=== PATIENT | female | born 1990 | race Caucasian/White ===

== ENCOUNTER 2020-12-18 08:27 | Emergency (ER) | payer BC, SELFPAY ==
[2020-12-18 08:50] VITALS: BP 118/84; PULSE 77; RESP 18; TEMP 36.6; O2SAT 98; BMI 29.7
[2020-12-18] MEDS: Cocoa Butter/Zinc Oxide SUPP.RECT 1 SUPP PR (10:06)
[2020-12-18] MEDS: Lidocaine HCl 1 % MPF 5 ML VIAL SUBCUT (10:10)
[2020-12-18] MEDS: Lidocaine 4 % Cream KIT 1 APPL TOPICAL (10:10)
--- NOTE | 2020-12-18 10:24 | ED_ITS ---
HPI - GI Bleed General Chief complaint: General Medical Stated complaint: Hemmorhoids Time Seen by Provider: 12/18/20 09:14 Source: patient Mode of arrival: ambulatory Limitations: no limitations History of Present Illness MD complaint: other (Hemorrhoids) Onset (ago): day(s) (Few days) Pain Consistency: constant Severity: severe Relieving factors: none Exacerbating factors: none Context: hemorrhoids Associated symptoms: other (Bleeding from her hemorrhoid) Treatments Prior to Arrival: topical ointment (Preparation H with no significant relief) Related Data Home Medications Medication Instructions Recorded Confirmed atomoxetine 40 mg capsule 1 cap PO DAILY 12/18/20 dextroamphetamine-amphetamine 10 1 tab PO DAILY 12/18/20 mg tablet erenumab-aooe 140 mg/mL mg SUBCUT QMONTH 12/18/20 subcutaneous auto-injector (Aimovig Autoinjector) escitalopram oxalate 10 mg tablet 1 tab PO DAILY 12/18/20 levothyroxine 25 mcg tablet 1 tab PO DAILY 12/18/20 topiramate 100 mg tablet 1 tab PO BEDTIME 12/18/20 Previous Rx's Medication Instructions Recorded acetaminophen 500 mg tablet 1,000 mg PO QID PRN #14 tab 12/18/20 (Tylenol Extra Strength) ibuprofen 800 mg tablet 800 mg PO Q8H PRN #14 tab 12/18/20 pramoxine 1 % topical foam 1 appl NV BID #15 g 12/18/20 (Proctofoam) tramadol 50 mg tablet 50 mg PO Q8H PRN #14 tab 12/18/20 Allergies Allergy/AdvReac Type Severity Reaction Status Date / Time [id number] Antimigraine Allergy Palpitation Verified 12/18/20 08:52 Agents s Review of Systems Review of Systems: Constitutional : No Weight loss, No Fever, No Chills, No Night Sweats, No Fatigue, NoMalaise ENT/Mouth: No ear pain, No sore throat, No Difficulty swallowing Cardiovascular : No Chest Pain, No SOB, No Dyspnea on Exertion, No Orthopnea, NoEdema, No Palpitations Respiratory : No Cough, No Sputum, No Wheezing, No Dyspnea Gastrointestinal : No Nausea, No Vomiting, No abdominal pain, No Diarrhea, No blood streaked emesis, No coffee-ground emesis, No gross hematemesis, No blood streak stool, No gross hematochezia, No Melena, positive hemorrhoids, Genitourinary : No irregular bleeding, No Dysuria, No Urinary Frequency, No Hematuria,No Urinary Incontinence, No Urgency, No Flank Pain Musculoskeletal : No joint pain, No Myalgias, No Joint Swelling Skin : No Skin Lesions, No rash Neuro : No Weakness, No Numbness, No Paresthesias, No Loss of Consciousness, NoDizziness, No Headache Psych : No Social Issues, Heme/Lymph: No Bruising, No Bleeding,No Lymphadenopathy Endocrine : No Polyuria, No Polydipsia, No Temperature Intolerance Yes all other systems are reviewed and are negative [facility] Past Medical History Attestation statement: The following information was validated with the patient. Medical History Migraines Social History Social History Advance Directives: No Patient : No Physical Exam Vital Signs: Vital Signs: Last Vital Signs Temp 97.9 F 12/18/20 08:50 Pulse 77 12/18/20 08:50 Resp 18 12/18/20 08:50 BP 118/84 12/18/20 08:50 Pulse Ox 98 12/18/20 08:50 Body Mass Index 29.7 vital signs have been reviewed as normal and appeared to be correct. Blood pressure normal. Heart rate normal. Respiration rate normal. Temperature normal. Oxygen saturation normal. Appearance: Alert. Oriented X3. No acute distress. Head: Normal external exam. Normocephalic. Atraumatic. Eyes: PERRLA. EOMI. Conjunctiva and sclera normal. Eyelids normal. ENT: Pharynx normal. Uvula midline. Moist mucous membranes. Neck: Normal inspection. Neck supple. FROM. No meningeal signs. CVS: Normal heart rate and rhythm. Heart sound normal. Respiratory: No respiratory distress. Painless inspiration. Breath sounds normal. Abdomen: Soft and nontender. Bowel sounds normal in all 4 quadrants. No distention noted. No organomegaly noted. No visible injury noted. Rectal: Patient noted to have moderate size external thrombosed hemorrhoid with superficial opening no active bleeding noted at this time no purulent drainage noted. Back: Full range of motion noted. Skin: Skin warm and dry. Normal skin color. Normal skin turgor. No rashes/lesions/lacerations noted. Extremities: No lower extremity edema. Extremities exhibit normal range of motion. Extremities nontender. Neuro: Oriented X 3. No motor deficit. No sensory deficit. Reflexes normal. Normal steady gait. No focal neuro deficits noted. Course Course Course Narrative: 30-year-old female presenting to the ED with rectal bleeding from her hemorrhoids for the past few days worse today she is now status post hemorrhoidectomy. Patient tolerated procedure well. Will DC home with symptomatic treatment instructions return if any new or worsening symptoms to follow up with PCP/general surgeon. Patient understands agrees with this plan. MDM - GI Bleed Medical Records Attestation: I reviewed the patient's medical records. Procedures Abscess I/D Site: other (Hemorrhoid rectal area) Side (if applicable): left Local Anesthetic: lidocaine 1% Amount of anesthesia used (mL): 3 Technique: incised with blade Amount of fluid expressed (mL): 3 Sent for culture/gram staining?: No Irrigation: Yes Packing used?: none Complications: other (No complications and elliptical incision was utilized and patient tolerated procedure well) Discharge Plan Discharge Clinical Impression: Hemorrhoids, S/P hemorrhoidectomy Patient Disposition: Home, Self-Care Instructions: Hemorrhoids (ED), Sitz Bath (DC), Thrombosed Hemorrhoid (ED), Hemorrhoidectomy (DC) Prescriptions: New ibuprofen 800 mg tablet 800 mg PO Q8H PRN (Reason: pain) Qty: 14 RF: 0 tramadol 50 mg tablet 50 mg PO Q8H PRN (Reason: pain) Qty: 14 RF: 0 acetaminophen [Tylenol Extra Strength] 500 mg tablet 1,000 mg PO QID PRN (Reason: fever or pain) Qty: 14 RF: 0 pramoxine [Proctofoam] 1 % foam 1 appl NV BID Qty: 15 RF: 0 No Action dextroamphetamine-amphetamine 10 mg tablet 1 tab PO DAILY RF: 0 levothyroxine 25 mcg tablet 1 tab PO DAILY RF: 0 topiramate 100 mg tablet 1 tab PO BEDTIME RF: 0 escitalopram oxalate 10 mg tablet 1 tab PO DAILY RF: 0 atomoxetine 40 mg capsule 1 cap PO DAILY RF: 0 Aimovig Autoinjector 140 mg/mL auto-injector subcut QMONTH RF: 0 Referrals: Robin Hyde MD [Physician] - 2 days Yolanda Winn MD [Primary Care Provider] - 2 days Stand Alone Forms: Work/School Release Interventions: ED Discharge Assessment Last Done: 12/18/20 11:05 Discharge Date/Time: 12/18/20 11:06 Print Language: Luxembourger
[2020-12-18] MEDS: Hydrocortisone 2.5 % Rectal Cr 30 GM TUBE 1 APPL PR (10:55)
== END 2020-12-18 11:06 | disposition home or self-care (01) ==
PROVIDERS: Emergency Provider Emergency Medicine; PCP Internal Medicine
DX: K64.5 Perianal venous thrombosis (principal)
CPT/HCPCS: 46083; 99283; 99284

== ENCOUNTER 2023-02-24 08:36 | Outpatient (AMB) | payer BC, SELFPAY ==
--- NOTE | 2023-02-24 09:40 | AM.OFFWIN_ITS ---
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) Intake Note: pt is here today for congestion started 3 weeks ago Patient Tobacco Use Status: Never used Tobacco Allergies [id number] Antimigraine Agents Allergy (Verified 02/24/23 09:41) Palpitations Medication List - Last Reconciled 02/24/23 by Pushpa Gallagher NP cyclobenzaprine 10 mg PO BEDTIME dextroamphetamine-amphetamine 15 mg ER 1 cap PO QAM doxycycline monohydrate 100 mg PO BID indomethacin 25 mg PO TID PRN levocetirizine 5 mg PO QPM levothyroxine 50 mcg PO DAILY rimegepant (Nurtec ODT) 75 mg PO DAILY Do you need a note to return to daycare/school/sports/work: No HPI HPI Comments History of Present Illness Details 33 y/o female patient with c/o congestio n, cough and malaise x 3 weeks. PFSH Medical History Migraines Social History Patient Tobacco Use Status: Never used Tobacco Review of Systems Const All systems reviewed & are unremarkable except as noted in HPI and below Physical Exam Vital Signs: Last Vital Signs Temp 98.6 F 02/24/23 09:47 Pulse 89 02/24/23 09:47 BP 120/90 H 02/24/23 09:47 Pulse Ox 99 02/24/23 09:47 Oxygen Delivery Method Room Air 02/24/23 09:47 BMI result Body Mass Index 29.0 Const General: comfortable HEENT Head: Yes normocephalic Ears: external ears normal and TM's normal bilaterally General nose exam: Normal nasal mucous membranes and turbinates present Face and sinus: Yes sinuses nontender Mouth: moist mucous membranes Throat: Yes tonsils normal, Yes uvula midline and Yes postnasal drainage Resp Effort & Inspection: normal respiratory effort Auscultation: clear to auscultation bilaterally Cardio Rate: regular rate Rhythm: regular rhythm Assessment & Plan Assessment & Plan (1) URI, acute: Code(s): J06.9 - Acute upper respiratory infection, unspecified Plan: Rest and hydrate well. Fluconazole for yeast Proph Orders: Orders SARS-CoV2/FLU/RSV Today R09.89 - Other specified symptoms and signs involving the circulatory and respiratory systems Medications: New fluconazole TAKE 1 TAB NOW, MAY REPEAT SECOND DOSE IN 3 DAYS 150 mg PO DAILY 2 tabs 0RF B37.9 - Candidiasis, unspecified amoxicillin 500 mg PO BID 10 days 20 caps 0RF Coding Level of Care Code Est Pt Level 3 (33451) Diagnoses URI, acute J06.9 Time Spent (min) 14
[2023-02-24 09:47] VITALS: BP 120/90; PULSE 89; TEMP 37; O2SAT 99; BMI 29.0
== END 2023-02-24 10:01 | disposition home or self-care (01) ==
PROVIDERS: PCP Internal Medicine; Visit Provider Nurse Practitioner Family
DX: J06.9 Acute upper respiratory infection, unspecified (principal)
CPT/HCPCS: 99213

== ENCOUNTER 2023-02-24 13:40 | Outpatient (REF) | payer BC, SELFPAY ==
[2023-02-24 14:24] LABS: Influenza A PCR NEGATIVE (Negative); Influenza B PCR NEGATIVE (Negative); Resp Syncy Virus RNA Qual PCR NEGATIVE (Negative); SARS COV2 PCR INHOUSE NEGATIVE (Negative)
== END 2023-02-24 13:41 | disposition home or self-care (01) ==
LOC: HO.LNP 13:40
PROVIDERS: Visit Provider Nurse Practitioner Family
DX: Z11.52 Encounter for screening for COVID-19 (principal); Z20.822 Contact with and (suspected) exposure to COVID-19; R09.89 Other specified symptoms and signs involving the circulatory and respiratory systems
CPT/HCPCS: 0241U